=== PATIENT | female | born 1985 | race American Indian/Alaskan Native ===

== ENCOUNTER 2018-07-26 19:43 | Outpatient (CLI) | payer SELFPAY ==
[2018-07-26 20:22] VITALS: BP 102/60
[2018-07-26 22:06] LABS: Bacteria,Urine 1+ /HPF (Negative); Bilirubin,Urine NEG (Negative); Blood,Urine NEG (Negative); Calcium Oxalate Crystals,Urine 1+; Color,Urine Yellow (Yellow); Mucus,Urine FEW /HPF; Protein,Urine <15 mg/dL mg/dL (Negative)
[2018-07-26 22:16] LABS: RBC,Urine < 1.0 /HPF (0.0-6.0)
== END 2018-07-26 23:11 | disposition home or self-care (01) ==
LOC: TRG 19:43
PROVIDERS: ATTEND Obstetrics & Gynecology Gynecology
DX: O47.03 False labor before 37 completed weeks of gestation, third trimester (principal); Z3A.33 33 weeks gestation of pregnancy
CPT/HCPCS: 81001

== ENCOUNTER 2021-10-21 16:42 | Emergency (ER) | payer SELFPAY ==
[2021-10-21] MEDS ORDERED: ASPIRIN 325 MG TAB PO ONE (18:17)
[2021-10-21 18:45] LABS: Basophils # (Auto) 0.1 K/mm3 (0.0-0.1); Eosinophils # (Auto) 0.1 K/mm3 (0.0-0.4); Hematocrit 37.7 % (30.3-42.9); Hemoglobin 11.9 gm/dl (10.1-14.3); Lymphocytes # (Auto) 2.1 K/mm3 (1.2-5.4); Lymphocytes % (Auto) 34.3 % (13.4-35.0); Mean Corpuscular HGB Conc 32 % (30-34); Mean Corpuscular Volume 106 fl (79-97); Monocytes # (Auto) 0.7 K/mm3 (0.0-0.8); Monocytes % (Auto) 11.1 % (0.0-7.3); Platelet Count 216 K/mm3 (140-440); Red Blood Count 3.57 M/mm3 (3.65-5.03); Red Cell Distribution Width 13.3 % (13.2-15.2)
--- NOTE | 2021-10-21 18:52 | Emergency Department Report ---
ED General Adult HPI - General Chief complaint: Chest Pain Stated complaint: CHEST PAIN Time Seen by Provider: 10/21/21 17:58 Source: patient Mode of arrival: Ambulatory Limitations: No Limitations - History of Present Illness Initial comments: Patient is a 35-year-old female presents emergency room with complaints of substernal chest pain that began yesterday. She describes as a pressure. She states that she also has mild shortness of breath. She denies any fever, cough, hemoptysis, nausea, vomiting, diarrhea, diaphoresis, leg swelling, calf pain. No past medical history. No allergies to medications. She endorses marijuana use. She denies any family cardiac history. She denies any recent travel, recent surgery, hormone use. - Related Data Previous Rx's Medication Instructions Recorded Last Taken Type Sulfamethoxazole/Trimethoprim 1 each PO BID #20 tablet 10/04/18 Unknown Rx [Bactrim DS TAB] Allergies Allergy/AdvReac Type Severity Reaction Status Date / Time No Known Allergies Allergy Verified 10/21/21 21:01 ED Review of Systems ROS: Stated complaint: CHEST PAIN Other details as noted in HPI Comment: All other systems reviewed and negative ED Past Medical Hx - Past Medical History Hx Hypertension: No Hx Diabetes: No Hx Deep Vein Thrombosis: No Hx Renal Disease: No Hx Sickle Cell Disease: No Hx Seizures: No Hx Asthma: No - Surgical History Additional Surgical History: c-sections - Social History Smoking Status: Never Smoker Substance Use Type: None - Medications Home Medications: Home Medications Medication Instructions Recorded Confirmed Last Taken Type Sulfamethoxazole/Trimethoprim 1 each PO BID #20 tablet 10/04/18 10/21/21 Unknown Rx [Bactrim DS TAB] ED Physical Exam - General Limitations: No Limitations General appearance: alert, in no apparent distress - Head Head exam: Present: atraumatic, normocephalic - Eye Eye exam: Present: normal appearance - ENT ENT exam: Present: mucous membranes moist - Respiratory Respiratory exam: Present: normal lung sounds bilaterally. Absent: respiratory distress, wheezes, rales, rhonchi, stridor, chest wall tenderness, accessory muscle use, decreased breath sounds, prolonged expiratory - Cardiovascular Cardiovascular Exam: Present: regular rate, normal rhythm, normal heart sounds. Absent: systolic murmur, diastolic murmur, rubs, gallop - GI/Abdominal GI/Abdominal exam: Present: soft, normal bowel sounds. Absent: distended, tenderness, guarding, rebound, rigid - Neurological Exam Neurological exam: Present: alert, oriented X3 - Psychiatric Psychiatric exam: Present: normal affect, normal mood - Skin Skin exam: Present: warm, dry, intact ED Course Vital Signs 10/21/21 10/21/21 16:46 20:08 Temperature 98.3 F Pulse Rate 67 63 Respiratory 16 17 Rate Blood Pressure 133/70 Blood Pressure 144/91 [Right] O2 Sat by Pulse 100 100 Oximetry ED Medical Decision Making - Lab Data Result diagrams: 10/21/21 18:28 10/21/21 18:28 Lab Results 10/21/21 10/21/21 10/21/21 Range/Units 18:28 18:28 18:28 WBC 6.0 (4.5-11.0) K/mm3 RBC 3.57 L (3.65-5.03) M/mm3 Hgb 11.9 (10.1-14.3) gm/dl Hct 37.7 (30.3-42.9) % MCV 106 H (79-97) fl MCH 33 H (28-32) pg MCHC 32 (30-34) % RDW 13.3 (13.2-15.2) % Plt Count 216 (140-440) K/mm3 Lymph % (Auto) 34.3 (13.4-35.0) % Wright % (Auto) 11.1 H (0.0-7.3) % Eos % (Auto) 2.0 (0.0-4.3) % Baso % (Auto) 1.0 (0.0-1.8) % Lymph # (Auto) 2.1 (1.2-5.4) K/mm3 Wright # (Auto) 0.7 (0.0-0.8) K/mm3 Eos # (Auto) 0.1 (0.0-0.4) K/mm3 Baso # (Auto) 0.1 (0.0-0.1) K/mm3 Seg Neutrophils % 51.6 (40.0-70.0) % Seg Neutrophils # 3.1 (1.8-7.7) K/mm3 D-Dimer 189.67 (0-234) ng/mlDDU Sodium 141 (137-145) mmol/L Potassium 4.6 (3.6-5.0) mmol/L Chloride 106.5 (98-107) mmol/L Carbon Dioxide 21 L (22-30) mmol/L Anion Gap 18 mmol/L BUN 12 (7-17) mg/dL Creatinine 0.5 L (0.6-1.2) mg/dL Estimated GFR > 60 ml/min BUN/Creatinine Ratio 24 % Glucose 92 (65-100) mg/dL Calcium 9.3 (8.4-10.2) mg/dL Total Bilirubin 0.40 (0.1-1.2) mg/dL AST 18 (5-40) units/L ALT 16 (7-56) units/L Alkaline Phosphatase 60 (35-129) units/L Troponin T < 0.010 (0.00-0.029) ng/mL NT-Pro-B Natriuret Pep 30.84 (0-450) pg/mL Total Protein 6.9 (6.3-8.2) g/dL Albumin 4.8 (3.9-5) g/dL Albumin/Globulin Ratio 2.3 % HCG, Qual (Negative) 10/21/21 Range/Units 18:28 WBC (4.5-11.0) K/mm3 RBC (3.65-5.03) M/mm3 Hgb (10.1-14.3) gm/dl Hct (30.3-42.9) % MCV (79-97) fl MCH (28-32) pg MCHC (30-34) % RDW (13.2-15.2) % Plt Count (140-440) K/mm3 Lymph % (Auto) (13.4-35.0) % Wright % (Auto) (0.0-7.3) % Eos % (Auto) (0.0-4.3) % Baso % (Auto) (0.0-1.8) % Lymph # (Auto) (1.2-5.4) K/mm3 Wright # (Auto) (0.0-0.8) K/mm3 Eos # (Auto) (0.0-0.4) K/mm3 Baso # (Auto) (0.0-0.1) K/mm3 Seg Neutrophils % (40.0-70.0) % Seg Neutrophils # (1.8-7.7) K/mm3 D-Dimer (0-234) ng/mlDDU Sodium (137-145) mmol/L Potassium (3.6-5.0) mmol/L Chloride (98-107) mmol/L Carbon Dioxide (22-30) mmol/L Anion Gap mmol/L BUN (7-17) mg/dL Creatinine (0.6-1.2) mg/dL Estimated GFR ml/min BUN/Creatinine Ratio % Glucose (65-100) mg/dL Calcium (8.4-10.2) mg/dL Total Bilirubin (0.1-1.2) mg/dL AST (5-40) units/L ALT (7-56) units/L Alkaline Phosphatase (35-129) units/L Troponin T (0.00-0.029) ng/mL NT-Pro-B Natriuret Pep (0-450) pg/mL Total Protein (6.3-8.2) g/dL Albumin (3.9-5) g/dL Albumin/Globulin Ratio % HCG, Qual Negative (Negative) - EKG Data EKG shows normal: sinus rhythm, axis, intervals, QRS complexes, ST-T waves Rate: normal - Radiology Data Radiology results: report reviewed Ordering Physician: BASHIR HERNANDEZ Date of Service: 10/21/21 Procedure(s): XR chest routine 2V Accession Number(s): [id number] cc: BASHIR HERNANDEZ Fluoro Time In Minutes: CHEST 2 VIEWS INDICATION: cp,sob. COMPARISON: none FINDINGS: Support devices: None. Heart: Within normal limits. Lungs/pleura: No acute air space or interstitial disease. No pneumothorax. Additional findings: None. IMPRESSION: No acute findings. Signer Name: Jake Raygoza Jr, MD Signed: 10/21/2021 8:24 PM Workstation Name: [id number] Transcribed By: TTR Dictated By: JAKE RAYGOZA JR, MD Electronically Authenticated By: JAKE RAYGOZA JR, MD Signed Date/Time: 10/21/212023 DD/ 22 TD/TT: - Medical Decision Making Patient is a 35-year-old female presents emergency room with complaints of substernal chest pain that began yesterday. She describes as a pressure. She states that she also has mild shortness of breath. She denies any fever, cough, hemoptysis, nausea, vomiting, diarrhea, diaphoresis, leg swelling, calf pain. No past medical history. No allergies to medications. She endorses marijuana use. She denies any family cardiac history. She denies any recent travel, recent surgery, hormone use. Vitals are stable. Labs are stable. Troponin is negative. D-dimer is negative. Patient is PERC criteria negative for PE, PE unlikely. Heart score is 1, low risk for cardiac event. Chest x-ray No acute findings. Discussed all findings with patient. Patient believes her symptoms are likely related to gas, she states that she recently changed to a juicing diet. Advised patient Follow-up with your primary care doctor. Follow-up with a lump machine operator. Return to emergency room for any new or worsening symptoms. Critical care attestation.: If time is entered above; I have spent that time in minutes in the direct care of this critically ill patient, excluding procedure time. ED Disposition Clinical Impression: SOB (shortness of breath) Chest pain Qualifiers: Chest pain type: unspecified Qualified Code(s): R07.9 - Chest pain, unspecified Disposition: HOME / SELF CARE / HOMELESS Is pt being admited?: No Does the pt Need Aspirin: No Condition: Stable Instructions: Nonspecific Chest Pain, Adult Additional Instructions: Follow-up with your primary care doctor. Follow-up with a lump machine operator. Return to emergency room for any new or worsening symptoms. Referrals: PRIMARY CARE, [Primary Care Provider] - 3-5 Days SHAKA ESTRADA MD [Staff Physician] - 3-5 Days Time of Disposition: 20:49 Print Language: [place] HE[facility] Score - HEART Score History: Slightly suspicious EKG: Normal Age: < 45 Risk factors: 1-2 risk factors Troponin: Troponin T < 0.010 ng/mL (0.00-0.029) 10/21/21 18:28 Troponin: < normal limit HEART Score: 1
[2021-10-21 19:04] LABS: Alanine Aminotransferase 16 units/L (7-56); Albumin 4.8 g/dL (3.9-5); Blood Urea Nitrogen 12 mg/dL (7-17); Calcium 9.3 mg/dL (8.4-10.2); Hemolysis Index 34
[2021-10-21 19:27] LABS: BUN/Creatinine Ratio 24
[2021-10-21 20:09] VITALS: BP 144/91
--- NOTE | 2021-10-21 20:28 | XRay Report ---
CHEST 2 VIEWS INDICATION: cp,sob. COMPARISON: none FINDINGS: Support devices: None. Heart: Within normal limits. Lungs/pleura: No acute air space or interstitial disease. No pneumothorax. Additional findings: None. IMPRESSION: No acute findings. Signer Name: Jake Raygoza Jr, MD Signed: 10/21/2021 8:24 PM Workstation Name: [id number]
--- NOTE | 2021-10-23 10:24 | Electrocardiograph Report ---
[facility] Test Date: 2021-10-21 Test Time: 18:45:03 Pat Name: RAH LEBRON Department: Room: Gender: F Surgical Physician Assistant: CECILIO : 1985 Requested By: CHETAN TOLLIVER Order Number: [id number] Reading MD: Rae Ennis Measurements Intervals [place] Rate: 65 P: 46 OR: 153 QRS: 46 QRSD: 82 T: 43 QT: 420 QTc: 436 Interpretive Statements Sinus rhythm No previous ECG available for comparison Electronically Signed On 10-23-2021 10:23:46 EST by Rae Ennis
== END 2021-10-21 21:05 | disposition home or self-care (01) ==
LOC: ED 16:42
DX: R06.02 Shortness of breath (principal); R07.89 Other chest pain; Z98.890 Other specified postprocedural states
CPT/HCPCS: 36415; 71046; 80053; 83880; 84484; 84703; 85025; 85379; 93005; 99283